=== PATIENT | male | born 1945 | race Caucasian/White ===

== ENCOUNTER 2021-02-03 15:37 | Emergency (ER) | payer OTHER, SELFPAY ==
[2021-02-03 15:40] VITALS: BP 142/60; PULSE 91; RESP 17; TEMP 35.8; O2SAT 94; BMI 26.8
--- NOTE | 2021-02-03 16:09 | RAD_ITS ---
STUDY: X-RAY - RIGHT WRIST REASON FOR EXAM: Male, 75 years old. Trauma TECHNIQUE: 3 view(s) of the wrist were obtained. COMPARISON: None. FINDINGS: There is demineralization of the radius and ulna. Normal radiocarpal articulation. Normal distal radioulnar articulation. There is demineralization of the carpal bones. Normal carpal articulations. There is degenerative arthrosis of the carpometacarpal articulation of the thumb. Normal second through fifth carpometacarpal articulations. Normal visualized metacarpal bones. There are vascular calcifications. There is no demonstrated acute fracture. RAD/Wrist min 3 Views IMPRESSION: Demineralization. Degenerative change. No fracture. Electronically Signed: Lui Hermosillo MD at 17:15 EDT , Service support ,
--- NOTE | 2021-02-03 16:09 | RAD_ITS ---
STUDY: X-RAY - RIGHT SHOULDER REASON FOR EXAM: Male, 75 years old. Trauma TECHNIQUE: 4 view(s) of the shoulder. COMPARISON: None. FINDINGS: Reversed total replacement of the glenohumeral articulation. Normal acromioclavicular joint. Normal acromion. There is demineralization of the humerus and visualized osseous structures. The soft tissue structures are unremarkable. There is no demonstrated fracture. Normal visualized pulmonary apex. RAD/Shoulder min 2 Views IMPRESSION: Right shoulder replacement. Electronically Signed: Lui Hermosillo MD at 17:27 EDT , Service support ,
--- NOTE | 2021-02-03 16:09 | CT_ITS ---
STUDY: CT ABDOMEN AND PELVIS WITHOUT CONTRAST REASON FOR EXAM: Male, 75 years old. Trauma, pain. RADIATION DOSAGE (If Supplied By Facility): CTDIvol = ( 12.87 ) mGy, DLP = ( 710.67 ) mGycm TECHNIQUE: Transaxial images were obtained from the dome of the diaphragm to the symphysis pubis without oral contrast, and without intravenous contrast. Sagittal and coronal images were reconstructed. Individualized dose optimization techniques were used for this CT. COMPARISON: None. FINDINGS: There are chronic interstitial fibrotic changes of the lung bases. There are coronary artery calcifications. Normal liver. Normal gallbladder and extrahepatic biliary system. Normal spleen. Normal pancreas. Normal bilateral adrenal glands. Small calcifications of the bilateral kidneys could be urinary or vascular. . There is 0.6 cm hyperdense cyst of the right kidney. There is a 2.1 cm cyst of the left kidney. Normal visualized stomach. Normal small intestine. Normal colon. There is moderate stool. There is non-visualization of the appendix. There is diffuse atherosclerotic calcification of the abdominal aorta and branches, without a demonstrated aneurysm. Normal inferior vena cava. Normal retroperitoneum. Normal urinary bladder. There is no free fluid in the abdomen or pelvis. There is postoperative change involving abdominal wall. Degenerative change of the spine and hips. There is sacroiliac spurring and ankylosis CT/Abdomen/Pelvis without Cont IMPRESSION: No fracture. No solid organ injury. Electronically Signed: Lui Hermosillo MD at 17:36 EDT , Service support ,
--- NOTE | 2021-02-03 16:09 | CT_ITS ---
STUDY: CT CERVICAL SPINE WITHOUT CONTRAST REASON FOR EXAM: Male, 75 years old. Pain, trauma RADIATION DOSAGE (If Supplied By Facility): CTDIvol = ( 21.00 ) mGy, DLP = ( 486.53 ) mGycm TECHNIQUE: High resolution transaxial imaging was performed without contrast material. Sagittal and coronal images were reconstructed. Individualized dose optimization techniques were used for this CT. COMPARISON: None FINDINGS: Normal craniovertebral junction. There are degenerative changes of the anterior atlantoaxial articulation. There are erosions of the tip of the odontoid process. There is reversal of the normal cervical lordosis. There is postoperative change with anterior cervical fusion and hardware from C3 through C5. There is no acute fracture. There is demineralization of the vertebral bodies and posterior osseous elements. C2-3: Normal endplates. Normal disc height and morphology. Mild facet spurring. Normal central canal and intervertebral neuroforamina. C3-4: Anterior fusion. Spurring to the right. Facet spurring. No masses. Right foraminal narrowing C4-5: Anterior fusion. Disc bulge and spurring. Facet spurring. No canal stenosis. Bilateral foraminal narrowing. C5-6: Spurring and ankylosis of the disc space. Mild facet spurring. Normal central canal and intervertebral neuroforamina. C6-7: Spurring and ankylosis of the disc space. Facet spurring. Normal central canal and intervertebral neuroforamina. C7-T1: Disc bulge and spurring. Normal central canal and intervertebral neuroforamina. Normal visualized soft tissue structures. CT/Spine Cervical without Contras IMPRESSION: Multilevel degenerative and postoperative changes, as described above. Electronically Signed: Lui Hermosillo MD at 17:42 EDT , Service support ,
--- NOTE | 2021-02-03 16:09 | RAD_ITS ---
STUDY: X-RAY - RIGHT ELBOW REASON FOR EXAM: Male, 75 years old. Trauma TECHNIQUE: 3 view(s) of the elbow. COMPARISON: None. FINDINGS: There is demineralization of the visualized humerus, radius and ulna. There is degenerative arthrosis of the radiocapitellar and ulnotrochlear articulations. There is loose body at the lateral aspect. There are vascular calcifications. There is no demonstrated fracture. RAD/Elbow 2 Views IMPRESSION: Arthrosis of the elbow, as described above. Electronically Signed: Lui Hermosillo MD at 17:12 EDT , Service support ,
--- NOTE | 2021-02-03 17:12 | EDS_ITS ---
HPI HPI - Fall History of Present Illness Chief Complaint: Fall Narrative Narrative: Patient presents with right shoulder and elbow pain, some wrist pain after mechanical fall, he also fell hit the back of his lower neck and back region. He did not his abdomen but he had some abdominal pain from the fall. This happened 3 days ago. No head injury no loss consciousness. He has no confusion. His primary concern is the shoulder pain. [facility] Medical History (Updated 02/03/21 @ 18:[address] Kike Mandel MD) Diabetes Hyperlipidemia Hypertension Neuropathy Allergy/AdvReac Type Severity Reaction Status Date / Time amoxicillin [From Augmentin] Allergy Rash Verified 02/03/21 15:39 clavulanic acid Allergy Rash Verified 02/03/21 15:39 [From Augmentin] acetaminophen [From Percocet] AdvReac Other Verified 02/03/21 15:39 oxycodone [From Percocet] AdvReac Other Verified 02/03/21 15:39 Surgical History (Updated 02/03/21 @ 16:27 by Macrina Perez) H/O neck surgery History of appendectomy Social History Smoking Status: Never smoker ROS ROS ED ROS Narrative Social: Noncontributory Medications: Reviewed Past medical history: Reviewed Review of systems General: Patient has no head injury or loss of consciousness HEENT: No facial injury Neck: Some lower neck pain Cardiovascular: Patient denies any chest pain or palpitations Chest wall: No chest wall contusions Respiratory: There is no shortness of breath GI: There is no nausea vomiting diarrhea. There is some right side of the abdomen pain Skin: No lacerations or abrasions Neurological: Patient has no memory loss, confusion, or any focal weakness Psychiatric: No recent behavioral changes Back: Back pain as in HPI Musculoskeletal: No extremity injury All other systems are reviewed and normal EXAM Physical Exam Narrative Exam Narrative: Physical exam Vitals reviewed General: Does not appear in significant distress, no obvious injuries HEENT: No facial injury Head: No head injury Eyes: Extraocular movements intact Neck: Some tenderness over the lower C-spine region Heart: Regular rate normal pulses Chest wall: No chest wall pain Lungs clear lungs bilaterally with normal inspiration and expiration without tachypnea GI: Abdomen is soft and nontender except for the anterior axillary and mid axillary line in the mid abdomen region : Stable pelvis Musculoskeletal: Moves all extremities without any signs of trauma Back: Some slight lower thoracic and upper lumbar pain no contusions Skin: No abrasions or laceration Neurological: Patient is alert and oriented with no focal deficits Const Vital Signs: 02/03/21 15:40 02/03/21 16:21 Temperature 96.5 F L Temperature Source Temporal Pulse Rate 91 Respiratory Rate 17 Respiratory Depth Normal Respiratory Pattern Normal Blood Pressure 142/60 H Blood Pressure Mean 87 Pulse Ox 94 Oxygen Delivery Method Room Air MDM MDM MDM Narrative Medical decision making narrative: Patient has normal imaging. He appears well I will discharge him with reassurance. Radiography Diagnostic Testing: Radiology Impression Abdomen/Pelvis CT 02/03/21 16:09 IMPRESSION: No fracture. No solid organ injury. Electronically Signed: Lui Hermosillo MD at 17:36 EDT , Service support , Cervical Spine CT 02/03/21 16:09 IMPRESSION: Multilevel degenerative and postoperative changes, as described above. Electronically Signed: Lui Hermosillo MD at 17:42 EDT , Service support , Elbow X-Ray 02/03/21 16:09 IMPRESSION: Arthrosis of the elbow, as described above. Electronically Signed: Lui Hermosillo MD at 17:12 EDT , Service support , Shoulder X-Ray 02/03/21 16:09 IMPRESSION: Right shoulder replacement. Electronically Signed: Lui Hermosillo MD at 17:27 EDT , Service support , Wrist X-Ray 02/03/21 16:09 IMPRESSION: Demineralization. Degenerative change. No fracture. Electronically Signed: Lui Hermosillo MD at 17:15 EDT , Service support , Shoulder x-ray read by radiologist and myself is normal with a replacement but no fracture Elbow x-ray read by me and the radiologist does not show any fracture Wrist x-ray read by me and radiologist does not show any fracture. Discharge Plan Triage Chief Complaint: Fall ED Provider: Kike Madnel Dx/Rx/DC Orders Clinical Impression: Contusion of shoulder, right, Fall [facility] Care Provider: [facility] [Primary Care Provider] - 2 Days Disposition Disposition: Home, Self Care
== END 2021-02-03 18:27 | disposition home or self-care (01) ==
PROVIDERS: Emergency Provider Emergency Medicine
DX: S40.011A Contusion of right shoulder, initial encounter (principal); M25.521 Pain in right elbow; M25.531 Pain in right wrist; M54.2 Cervicalgia; M54.5 Low back pain; M54.6 Pain in thoracic spine; R10.9 Unspecified abdominal pain; W19.XXXA Unspecified fall, initial encounter; Y93.9 Activity, unspecified; Y92.9 Unspecified place or not applicable; Y99.9 Unspecified external cause status; E11.40 Type 2 diabetes mellitus with diabetic neuropathy, unspecified; I10 Essential (primary) hypertension; E78.5 Hyperlipidemia, unspecified; Z96.611 Presence of right artificial shoulder joint
CPT/HCPCS: 72125; 73030; 73070; 73110; 74176; 99282